=== PATIENT | female | born 1980 | race Caucasian/White ===

== ENCOUNTER → 2018-04-03 | Outpatient (CLI) | payer BC ==
--- NOTE | 2018-04-03 09:53 | US ---
EXAMINATION TYPE: Transabdominal DATE OF EXAM: 09/23/17 COMPARISON: NONE CLINICAL HISTORY: Z34.01 Encounter for supervision of normal first p. Dates and viability EXAM PERFORMED: Transvaginal (TV) and Transabdominal (TA) EXAM MEASUREMENTS: GESTATIONAL AGE / DATING Physician Established: Not yet established Dates by LMP: (7 weeks/3 days) EDC: 11/17/2018 Dates by First Scan: No previous this is first scan Dates by Current Scan for: (7 weeks/2 days) EDC: 11/18/2018 MATERNAL ANATOMY Uterus: 10.8 x 7.8 x 6.4 cm Right Ovary: 2.7 x 1.7 x 2.1 cm Left Ovary: 3.0 x 1.6 x 2.1 cm Post CDS / Adnexa: wnl Presence of free fluid: No Presence of corpus luteal cyst: Cystic area visualized left ovary measuring 1.9 x 1.0 x 0.9 cm Presence of subchorionic bleed: Yes, to the left of the gestational sac measuring 1.5 x 1.1 x 1.4 cm GESTATION / SURVEY CRL: 1.17 cm (7 weeks/2 days) Yolk Sac (normal less than 6mm): 3 mm Heart Rate: 141 bpm Rhythm: Normal IUP: Viable IUP Date of LMP: 02/10/2018 Beta HcG (if available): Not available at this time Viable IUP, measurements consistent with dates. Probable fibroid visualized measuring 6.1 x 5.7 x 7.4 cm inferior to the gestational sac. Subchorionic bleed to the left of the gestational sac measuring 1.5 x 1.1 x 1.4 cm IMPRESSION: Single intrauterine gestation estimated at 7 weeks 2 days gestation based on the crown-rump length. C ardiac activity measures 141 bpm. 2. Subchorionic hemorrhage. 3. Uterine fibroid measuring 6.1 x 5.7 x 7.4 cm.
== END ==
LOC: RADUSWWP 07:38
PROVIDERS: ATTEND Obstetrics & Gynecology
DX: O20.8 Other hemorrhage in early pregnancy (principal); O34.11 Maternal care for benign tumor of corpus uteri, first trimester; Z3A.01 Less than 8 weeks gestation of pregnancy
CPT/HCPCS: 76801; 76817

== ENCOUNTER → 2022-01-24 | Outpatient (CLI) | payer OTHER ==
[2022-01-24 23:28] LABS: HCT 41.3 % (37.2-46.3); HGB 13.1 g/dL (12.0-15.0); MCHC 31.7 g/dL (32.0-37.0); MCV 91.6 fL (80.0-97.0); Mean Platelet Volume 10.9 fL (9.5-12.2); NRBC Per 100 WBC 0 /100 WBCS (0.0-0.0); Platelet Count 246 X 10*3/uL (140-440); RBC 4.51 X 10*6/uL (4.10-5.20); RDW 12.8 % (11.5-14.5); WBC 5.62 X 10*3/uL (4.50-10.00)
== END | disposition home or self-care (01) ==
LOC: LABWHC1 15:29
PROVIDERS: ATTEND Obstetrics & Gynecology
DX: O20.0 Threatened abortion (principal); Z3A.00 Weeks of gestation of pregnancy not specified
CPT/HCPCS: 36415; 84702; 85027; 86850; 86900; 86901

== ENCOUNTER 2023-02-13 17:38 | Observation (INO) | payer OTHER ==
[2023-02-13] MEDS: LACTATED RINGERS 1,000 ML IV SCH ×2 (18:20→18:53)
[2023-02-13 18:34] LABS: Basophils % (A) 0 %; Eosinophils % (A) 0 %; HCT 35.9 % (34.0-46.0); HGB 12.3 gm/dL (11.4-16.0); Lymphocytes # (A) 0.4 k/uL (1.0-4.8); Lymphocytes % (A) 4 %; MCH 30.4 pg (25.0-35.0); MCHC 34.3 g/dL (31.0-37.0); MCV 88.5 fL (80.0-100.0); Mean Platelet Volume 8.4; Monocytes # (A) 0.3 k/uL (0-1.0); Monocytes % (A) 3 %; Neutrophils # (A) 9.9 k/uL (1.3-7.7); Neutrophils % (A) 92 %; Platelet Count 191 k/uL (150-450); RBC 4.05 m/uL (3.80-5.40); RDW 14.7 % (11.5-15.5); WBC 10.7 k/uL (3.8-10.6)
[2023-02-13 18:53] LABS: African American GFR (CKD) >90 (>60 ml/min/1.73 sqM); Anion Gap 12 mmol/L; Blood Urea Nitrogen 9 mg/dL (7-17); Calcium 8.1 mg/dL (8.4-10.2); Carbon Dioxide 14 mmol/L (22-30); Chloride 106 mmol/L (98-107); Glucose 75 mg/dL (74-99); Non-African American GFR(CKD) >90 (>60 ml/min/1.73 sqM); Potassium 3.6 mmol/L (3.5-5.1); Sodium 132 mmol/L (137-145)
[2023-02-13] MEDS ORDERED: ACETAMINOPHEN IV (For NPO) 1,000 MG in EMPTY BAG 1 BAG IVPB ONE (20:13)
[2023-02-13 20:31] LABS: Appearance,Urine Clear (Clear); Bilirubin,Urine Negative (Negative); Blood,Urine Negative (Negative); Color,Urine Yellow; Glucose,Urine (UA) Negative (Negative); Ketones,Urine 4+ (Negative); Leukocyte Esterase,Urine Negative (Negative); Nitrite,Urine Negative (Negative); PH, Urine 5.5 (5.0-8.0); Protein,Urine Trace (Negative); Specific Gravity,Urine 1.017 (1.001-1.035); Urobilinogen,Urine <2.0 mg/dL (<2.0)
[2023-02-13] MEDS ORDERED: LACTATED RINGERS 1,000 ML IV SCH (21:00)
[2023-02-13] MEDS ORDERED: SODIUM CHLORIDE 0.9% 1,000 ML IV SCH (21:45)
[2023-02-13] MEDS ORDERED: ONDANSETRON 4 MG/2 ML VIAL IVP PRN (21:46)
[2023-02-13 23:50] VITALS: RESP 16
[2023-02-14] MEDS ORDERED: ACETAMINOPHEN TAB 500 MG TAB PO PRN (03:00)
[2023-02-14 04:22] VITALS: BP 99/55; PULSE 93; TEMP 97.9
[2023-02-14] MEDS ORDERED: LACTATED RINGERS 1,000 ML IV SCH (07:00)
--- NOTE | 2023-02-14 08:56 | P.HPOB ---
History of Present Illness H&P Date: 02/14/23 Chief Complaint: IUP at 33 weeks, nausea vomiting, dehydration This is a 43-year-old 6 para 0-32 that presented to labor and delivery with complaints of nausea vomiting diarrhea. Patient was noted to be 33-3/7 weeks, estimated due date of 04/01. Patient has been receiving routine care which has been essentially uncomplicated. Patient does have a history of delivery. Patient states everyone in her family has been ill with nausea vomiting diarrh ea. Patient presented with signs of dehydration. Patient had been unable to keep anything down for approximately 24 hours. Patient states she took Zofran proximally 2 hours prior to presentation. She denies vaginal bleeding. She denies contractions. She notes good movement. Review of Systems Constitutional: Reports fatigue, Denies chills, Denies fever Ears, nose, mouth and throat: Denies headache Cardiovascular: Reports leg edema Respiratory: Denies dyspnea Gastrointestinal: Denies nausea, Denies vomiting Genitourinary: Reports Past Medical History History of Any Multi-Drug Resistant Organisms: None Reported Smoking Status: Never smoker Medications and Allergies Home Medications Medication Instructions Recorded Confirmed Type Ondansetron [Zofran] 4 mg PO Q8HR PRN 02/13/23 02/13/23 History Allergies Allergy/AdvReac Type Severity Reaction Status Date / Time penicillin G Allergy Rash/Hives Verified 02/13/23 18:01 Exam Osteopathic Statement: *. No significant issues noted on an osteopathic structural exam other than those noted in the History and Physical/Consult. 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 Initially she did have contractions approximately labor 5 minutes apart these resolved with fluid hydration. Results Result Diagrams: 02/13/23 15:44 02/13/23 15:44 Abnormal Lab Results - Last 24 Hours (Table) 02/13/23 02/13/23 02/13/23 Range/Units 15:44 15:44 20:00 WBC 10.7 H (3.8-10.6) k/uL Neutrophils # 9.9 H (1.3-7.7) k/uL Lymphocytes # 0.4 L (1.0-4.8) k/uL Sodium 132 L (137-145) mmol/L Carbon Dioxide 14 L (22-30) mmol/L Creatinine 0.49 L (0.52-1.04) mg/dL Calcium 8.1 L (8.4-10.2) mg/dL Urine Protein Trace H (Negative) Urine Ketones 4+ H (Negative) Assessment and Plan (1) 33 weeks gestation of Current Visit: Yes Status: Acute Code(s): Z3A.33 - 33 WEEKS GESTATION OF SNOMED Code(s): 35822313 (2) Nausea & vomiting Current Visit: Yes Status: Acute Code(s): R11.2 - NAUSEA WITH VOMITING, UNSPECIFIED SNOMED Code(s): 37919354 (3) Dehydration Current Visit: Yes Status: Acute Code(s): E86.0 - DEHYDRATION SNOMED Code(s): 74230697 Plan: 43-year-old she 6 P0 232 at 33-3/7 weeks admitted for IV hydration secondary to nausea vomiting dehydration. Plan NST every shift. FFN was obtained in triage negative in nature.
--- NOTE | 2023-02-14 08:59 | P.DS ---
Providers Date of admission: 02/13/23 21:40 Expected date of discharge: 02/14/23 Attending physician: Kimberly Portillo Primary care physician: Stated None - Discharge Diagnosis(es) (1) 33 weeks gestation of Current Visit: Yes Status: Acute (2) Nausea & vomiting Current Visit: Yes Status: Acute (3) Dehydration Current Visit: Yes Status: Acute Hospital Course: 43-year-old to 32 at 33-3/7 weeks presented last evening with complaints of nausea vomiting and dehydration. Patient was admitted for IV hydration. For full details on this patient please see the dictated history and physical. Patient this morning is feeling well. She states her nausea has resolved, patient has had spontaneous voids. She denies concerns and would like discharge home today. Patient Condition at Discharge: Good Plan - Discharge Summary New Discharge Prescriptions: No Action Ondansetron [Zofran] 4 mg PO Q8HR PRN PRN Reason: Nausea Discharge Medication List Ondansetron [Zofran] 4 mg PO Q8HR PRN 02/13/23 [History] Follow up Appointment(s)/Referral(s): Kimberly Portillo DO [Doctor of Osteopathic Medicine] - 1 Week Activity/Diet/Wound Care/Special Instructions: Oral hydration is discussed with Jose in detail., Increased Gatorade/Powerade along with a water is reviewed. BRAT diet is reviewed She is to call the office and make a OB appointment in 1 week Discharge Disposition: HOME SELF-CARE
== END 2023-02-14 09:59 | disposition home or self-care (01) ==
LOC: FBPOP 17:38 → 4FBP 21:40
PROVIDERS: ADMIT Obstetrics & Gynecology Obstetrics; ATTEND Obstetrics & Gynecology Obstetrics
DX: O21.2 Late vomiting of pregnancy (principal); O99.891 Other specified diseases and conditions complicating pregnancy; O09.523 Supervision of elderly multigravida, third trimester; O09.213 Supervision of pregnancy with history of pre-term labor, third trimester; O99.283 Endocrine, nutritional and metabolic diseases complicating pregnancy, third trimester; E86.0 Dehydration; Z3A.33 33 weeks gestation of pregnancy; Z88.0 Allergy status to penicillin; O26.893 Other specified pregnancy related conditions, third trimester; R19.7 Diarrhea, unspecified
CPT/HCPCS: 59025; 99214; 96361; 96365; 36415; 82731; 80048; 85025; 81003; 87636; G0378 ×2; J0131; 96360

== ENCOUNTER 2023-03-24 19:35 | Inpatient (IN) | payer OTHER ==
[2023-03-24] MEDS ORDERED: OXYTOCIN 10 UNIT/ML 1 ML VIAL IM PRN (20:46)
[2023-03-24] MEDS ORDERED: TRANEXAMIC 1,000 MG/100ML-NACL 1,000 MG in EMPTY BAG 1 BAG IV PRN (20:46)
[2023-03-24] MEDS ORDERED: CARBOPROST TROMETHAMINE 250 MCG/ML 1 ML AMP IM PRN (20:46)
[2023-03-24] MEDS ORDERED: miSOPROStoL 200 MCG TAB PO PRN (20:46)
[2023-03-24] MEDS ORDERED: LIDOCAINE 0.5% (PF) 5 MG/ML (50 ML SDV) SQ PRN (20:46)
[2023-03-24] MEDS ORDERED: METHYLERGONOVINE 0.2 MG/ML 1 ML AMP IM PRN (20:46)
[2023-03-24] MEDS ORDERED: TERBUTALINE 1 MG/ML VIAL SQ PRN (20:46)
[2023-03-24] MEDS ORDERED: OXYTOCIN 30 UNITS/500 ML NS 30 UNIT in SALINE 1 500ML.BAG IV SCH (21:00)
[2023-03-24 21:06] LABS: Basophils % (A) 0 %; Eosinophils # (A) 0.2 k/uL (0-0.7); Eosinophils % (A) 2 %; HCT 33.5 % (34.0-46.0); HGB 11.2 gm/dL (11.4-16.0); Lymphocytes % (A) 18 %; MCH 28.4 pg (25.0-35.0); MCHC 33.5 g/dL (31.0-37.0); MCV 84.8 fL (80.0-100.0); Mean Platelet Volume 8.3; Monocytes # (A) 0.7 k/uL (0-1.0); Monocytes % (A) 7 %; Neutrophils # (A) 7.9 k/uL (1.3-7.7); Neutrophils % (A) 71 %; Platelet Count 244 k/uL (150-450); RBC 3.95 m/uL (3.80-5.40); RDW 15.2 % (11.5-15.5); WBC 11.1 k/uL (3.8-10.6)
[2023-03-24] MEDS ORDERED: ROPIVACAINE 5 MG/ML 30 ML VIAL ONE (21:47)
[2023-03-24] MEDS ORDERED: SODIUM CHLORIDE 0.9% 250 ML BAG ONE (21:47)
[2023-03-24] MEDS: LACTATED RINGERS 1,000 ML IV SCH (21:47)
[2023-03-24] MEDS ORDERED: fentaNYL (PF) 50 MCG/ML 5 ML AMP ONE (21:47)
--- NOTE | 2023-03-24 21:54 | P.HPOB ---
History of Present Illness H&P Date: 03/24/23 Chief Complaint: Spontaneous rupture of membranes at 38-5/7 weeks This is a 43-year-old 5 para 1132 woman with an estimated due date of 04/01/2023 based on LMP consistent with first trimester ultrasound. She presents at 38-5/7 weeks gestation having had spontaneous rupture of membranes at approximately 5:30 PM. She had increasing painful contraction activity. Up on labor and delivery triage rupture of membranes was confirmed and she was noted to be 5+ centimeters dilated and actively laboring. She is therefore admitted. Her has been uncomplicated. She is known Rh- and does have a history of previous 36 and 37 week deliveries. Obstetric history: 1999 1937 weeks normal spontaneous vaginal delivery, seven-week missed AB, 136 week spontaneous vaginal delivery, missed AB 2 in 2021. Laboratory data: Blood type O-, antibody screen negative, rubella immune, VDRL nonreactive, hepatitis B surface antigen negative, HIV negative, gonorrhea and clinic cultures negative, group B strep status negative. Patient did receive RhoGAM and glucose tolerance testing was within normal limits. Review of Systems All systems: negative Past Medical History Past Medical History: No Reported History History of Any Multi-Drug Resistant Organisms: None Reported Past Surgical History: No Surgical Hx Reported Past Anesthesia/Blood Transfusion Reactions: No Reported Reaction Past Psychological History: No Psychological Hx Reported Smoking Status: Never smoker Past Alcohol Use History: None Reported Past Drug Use History: None Reported Medications and Allergies Home Medications Medication Instructions Recorded Confirmed Type Ondansetron [Zofran] 4 mg PO Q8HR PRN 02/13/23 03/24/23 History Allergies Allergy/AdvReac Type Severity Reaction Status Date / Time penicillin G Allergy Rash/Hives Verified 03/24/23 19:53 Exam Intake and Output 03/24/23 03/24/23 03/24/23 06:59 14:59 22:59 Other: Weight 65.771 kg Targeted physical exam is performed. This is a visibly gravid woman who is actively laboring. On pelvic examination the cervix is 7 cm dilated, 100% effaced and the vertex is in the -1 station. heart tones are categ ory 1 with good variability. She is munir spontaneously every 2-4 minutes. Results Result Diagrams: 03/24/23 20:44 Abnormal Lab Results - Last 24 Hours (Table) 03/24/23 Range/Units 20:44 WBC 11.1 H (3.8-10.6) k/uL Hgb 11.2 L (11.4-16.0) gm/dL Hct 33.5 L (34.0-46.0) % Neutrophils # 7.9 H (1.3-7.7) k/uL Assessment and Plan (1) with 38 completed weeks gestation Current Visit: Yes Status: Acute Code(s): Z3A.38 - 38 WEEKS GESTATION OF SNOMED Code(s): 53330753 (2) AMA (advanced maternal age) multigravida 35+ Current Visit: Yes Status: Acute Code(s): O09.529 - SUPERVISION OF ELDERLY MULTIGRAVIDA, UNSPECIFIED TRIMESTER SNOMED Code(s): 751608263 (3) Rh negative status during Current Visit: Yes Status: Acute Code(s): O26.899 - OTH RELATED CONDITIONS, UNSPECIFIED TRIMESTER; Z67.91 - UNSPECIFIED BLOOD TYPE, RH NEGATIVE SNOMED Code(s): 977316390 (4) Spontaneous onset of labor Current Visit: Yes Status: Acute Code(s): FPQ2963 - SNOMED Code(s): 8 5200514 (5) Spontaneous rupture of membranes Current Visit: Yes Status: Acute Code(s): KTX0166 - SNOMED Code(s): 258208134 Plan: 43-year-old 5 para 2 woman who presents at 38-5/7 weeks gestation with spontaneous rupture of membranes and active labor. status currently reassuring. She is Rh- and group B strep negative. She is requesting an epidural anesthetic. I anticipate normal spontaneous vaginal delivery.
[2023-03-25] MEDS ORDERED: OXYTOCIN 30 UNITS/500 ML NS 30 UNIT in SALINE 1 500ML.BAG IV SCH (01:15)
[2023-03-25] MEDS ORDERED: HYDROCORTISONE 2.5% RECTAL CREAM 30 GM TUBE RECTAL PRN (01:15)
[2023-03-25] MEDS ORDERED: ACETAMINOPHEN ORAL SUSP 160 MG/5 ML CUP PO PRN (01:15)
[2023-03-25] MEDS ORDERED: diphenhydrAMINE 50 MG CAP PO PRN (01:15)
[2023-03-25] MEDS ORDERED: diphenhydrAMINE 25 MG CAP PO PRN (01:15)
[2023-03-25] MEDS ORDERED: ZOLPIDEM 5 MG TAB PO PRN (01:15)
[2023-03-25] MEDS ORDERED: diphenhydrAMINE 50 MG/ML 1 ML VIAL IVP PRN ×2 (01:15)
[2023-03-25] MEDS ORDERED: BENZOCAINE/MENTHOL SPRAY 1 GM/SPRAY AEROSOL TOPICAL PRN (01:15)
[2023-03-25] MEDS ORDERED: LANOLIN CREAM 5 GM TUBE TOPICAL PRN (01:15)
[2023-03-25] MEDS ORDERED: SIMETHICONE 80 MG CHEWABLE PO PRN (01:15)
--- NOTE | 2023-03-25 01:15 | P.PROBDLV ---
Vaginal Delivery Note - . Vaginal Delivery Note: Findings: Female in the vertex left occiput anterior position with nuchal cord 1. Apgars of 8 at 1 minute and 9 at 5 minutes. Weight pending. Intact, three-vessel cord placenta. EBL 100 mL's. Delivery summary: This is a 43-year-old 5 para 1122 woman who presents at 38-5/7 weeks gestation with spontaneous rupture of membranes and active labor. She was 5 cm upon admission. She initially declined all intervention other than Hep-Lock IV. Ultimately in active labor she did request an epidural anesthetic which was placed. At that point she was 8+ centimeters dilated. She had overall category 1 heart tones. She had good relief with her epidural however began having significant discomfort and was found to be anterior lip. She had involuntary pushing. She did then progressed to complete cervical dilation. She was then repositioned in the modified [place] position. With additional maternal effort the head delivered from the left occiput anterior position. Nuchal cord 1 was reduced. The anterior followed by the posterior shoulders were then delivered without difficulty and the rest the was delivered onto the field. The nose and mouth were bulb suctioned. The infant was placed on the maternal abdomen. Eventually the cord was clamped and cut. Apgars were 8 at 1 minute and 9 at 5 minutes. Weight is pending. An intact, three-vessel cord placenta was expressed after a less than 5 minute third stage of labor. Following the third stage of labor the patient did receive Pitocin intravenously. The vagina and cervix were inspected and no lacerations were noted. The uterus was massaged and was noted to be firm 3 cm below the umbilicus. All counts were correct. Mother and were doing well post delivery in the room.
[2023-03-25] MEDS: IBUPROFEN 600 MG TAB PO PRN ×3 (01:40→16:14)
[2023-03-25] MEDS: LACTATED RINGERS 1,000 ML IV SCH (05:52)
[2023-03-25] MEDS: SENNOSIDES-DOCUSATE SODIUM 1 EACH TAB PO SCH ×2 (09:13→20:32)
[2023-03-26] MEDS: IBUPROFEN 600 MG TAB PO PRN ×2 (01:10→08:19)
[2023-03-26 06:28] LABS: Basophils # (A) 0.1 k/uL (0-0.2); Basophils % (A) 0 %; Eosinophils # (A) 0.2 k/uL (0-0.7); Eosinophils % (A) 2 %; HCT 33.5 % (34.0-46.0); HGB 10.8 gm/dL (11.4-16.0); Hypochromasia Slight; Lymphocytes # (A) 2.2 k/uL (1.0-4.8); Lymphocytes % (A) 18 %; MCH 27.9 pg (25.0-35.0); MCHC 32.2 g/dL (31.0-37.0); MCV 86.7 fL (80.0-100.0); Mean Platelet Volume 8.6; Monocytes # (A) 0.6 k/uL (0-1.0); Monocytes % (A) 5 %; Neutrophils # (A) 8.6 k/uL (1.3-7.7); Neutrophils % (A) 73 %; Platelet Count 227 k/uL (150-450); RBC 3.86 m/uL (3.80-5.40); RDW 15.3 % (11.5-15.5); WBC 11.8 k/uL (3.8-10.6)
[2023-03-26] MEDS: SENNOSIDES-DOCUSATE SODIUM 1 EACH TAB PO SCH (08:19)
[2023-03-26 08:47] VITALS: BP 100/67; PULSE 85; RESP 16; TEMP 97.5
--- NOTE | 2023-03-26 12:43 | P.DS ---
Providers Date of admission: 03/24/23 20:08 Expected date of discharge: 03/26/23 Attending physician: Kimberly Portillo Primary care physician: Stated None - Discharge Diagnosis(es) (1) Status post normal vaginal delivery Status: Acute (2) AMA (advanced maternal age) multigravida 35+ Status: Acute (3) with 38 completed weeks gestation Status: Acute (4) Rh negative status during Status: Acute (5) Spontaneous onset of labor Status: Acute (6) Spontaneous rupture of membranes Status: Acute Hospital Course: This 43-year-old 5 now para 2133 that presented to labor and delivery on 03/24 with complaints of spontaneous rupture of membranes and painful contractions. Patient receiving routine care with myself which has been essentially uncomplicated. For full details on this patient please see the dictated history and physical. Patient was admitted to labor and delivery where spontaneous rupture of membranes was confirmed, patient was noted to be 5+ centimeters. Patient did decline any intervention other than Hep-Lock. Patient once in active labor did request an epidural. Epidural was placed without difficulty by the anesthesia department. Patient did progress to complete began pushing and had normal spontaneous vaginal delivery of a viable female infant, weight of 7 pounds 13.3 ounces. Patient did not have any vaginal lacerations appreciated after delivery. Patient's course has been essentially uneventful. On this day #1 she is ambulating and voiding without difficulty. She is tolerating regular diet without nausea or vomiting. States her pain is well- controlled. She is struggling with some muscular skeletal pain and breast- feeding positioning. Patient states her lochia is minimal, she is tolerating a regular diet without nausea or vomiting. Her pain is well-controlled with Motrin. Patient Condition at Discharge: Good Plan - Discharge Summary New Discharge Prescriptions: No Action Ondansetron [Zofran] 4 mg PO Q8HR PRN PRN Reason: Nausea Discharge Medication List Ondansetron [Zofran] 4 mg PO Q8HR PRN 02/13/23 [History] Follow up Appointment(s)/Referral(s): Kimberly Portillo DO [Doctor of Osteopathic Medicine] - 6 Weeks Patient Instructions/Handouts: Vaginal Delivery (GEN), Vaginal Delivery (DC) Activity/Diet/Wound Care/Special Instructions: No tub baths or intercourse until 6 weeks . Patient is to call the office and make a routine visit at 6 weeks. Concerns prior to this appointment she is urged to call the office. Discharge Disposition: HOME SELF-CARE
== END 2023-03-26 09:31 | disposition home or self-care (01) | DRG 807 ==
LOC: FBPOP 19:35 → 4FBP 20:08
PROVIDERS: ADMIT Obstetrics & Gynecology; ATTEND Obstetrics & Gynecology Obstetrics
PROC: 10E0XZZ Delivery of Products of Conception, External Approach (ICD-10-PCS; principal; 2023-03-25)
PROC: 3E0R3BZ Introduction of Anesthetic Agent into Spinal Canal, Percutaneous Approach (ICD-10-PCS; 2023-03-25)
DX: O69.81X0 Labor and delivery complicated by cord around neck, without compression, not applicable or unspecified (principal); Z37.0 Single live birth; O26.893 Other specified pregnancy related conditions, third trimester; Z3A.38 38 weeks gestation of pregnancy; Z67.91 Unspecified blood type, Rh negative; Z87.59 Personal history of other complications of pregnancy, childbirth and the puerperium; Z88.0 Allergy status to penicillin; Z28.310 Unvaccinated for COVID-19
CPT/HCPCS: 59025; 84112; 85025; 86850; 86870; 86880; 86900; 86901; 99213